=== PATIENT | female | born 1970 | race Caucasian/White ===

== ENCOUNTER → 2020-06-26 14:02 | Outpatient (BNVA) | payer OTHER, SELFPAY | PROVIDERS: PCP Nurse Practitioner Adult Health; Visit Provider Surgery | DX: K80.20 Calculus of gallbladder without cholecystitis without obstruction (principal) | CPT/HCPCS: 99203 ==

== ENCOUNTER 2020-07-03 06:08 | Day surgery (SDC) | payer OTHER, SELFPAY ==
--- NOTE | 2020-07-02 12:06 | HO.ANESPROP2 ---
Documented by User: Shanna Ware 07/02/20 12:12 HPI - Anesthesia Eval Consult details Narrative: 49yo F for uday thakur PMFSH Past Medical History Medical History Back pain Elevated cholesterol Fibromyalgia GERD (gastroesophageal reflux disease) HTN (hypertension) Normal endoscopy Sleep apnea Family History Family History Maternal Grandmother History of colon cancer History of breast cancer Father History of prostate cancer Brother History of testicular cancer Social History Social History (Updated 06/26/20 @ 14:20 by JORGE A Owens) Alcohol intake: current Alcohol intake frequency: holidays/special occasions only Smoking Status: Former smoker Smoked in Last 30 Days: No Use of substances other than those prescribed or required for medical reasons: No Have you been hit, kicked, punched, or otherwise hurt by someone within the past year? If so, by whom?: No Advance Directives: No Advance Directives Information Provided: Yes Advance Directives on File: No Recently lost weight without trying: No Meds Allergies Allergy/AdvReac Type Severity Reaction Status Date / Time azithromycin Allergy Mild HIVES Verified 07/03/20 06:16 Home Medications Medication Instructions Recorded Confirmed Type duloxetine 60 mg capsule,delayed 60 mg PO BID 06/26/20 History release estradiol g VAGINAL 06/26/20 History hydrochlorothiazide 25 mg tablet 25 mg PO DAILY 06/26/20 History levothyroxine 88 mcg tablet 88 mcg PO DAILY 06/26/20 History lorazepam 1 mg tablet 1 mg PO TID 06/26/20 History metoprolol succinate 100 mg 100 mg PO DAILY 06/26/20 History tablet,extended release 24 hr oxybutynin chloride 10 mg 10 mg PO DAILY 06/26/20 History tablet,extended release 24 hr Prilosec OTC 10 mg PO DAILY PRN 07/02/20 07/02/20 History Exam Exam Date and Time: July 02, 2020 1206 Assessment and Plan Assessment Anesthesia Assessment: Chart Reviewed Documented by User: Stephanie Dacosta 07/03/20 07:23 PMFSH Past Medical History Medical History Back pain Elevated cholesterol Fibromyalgia GERD (gastroesophageal reflux disease) HTN (hypertension) Normal endoscopy Sleep apnea Family History Family History Maternal Grandmother History of colon cancer History of breast cancer Father History of prostate cancer Brother History of testicular cancer Social History Social History (Updated 06/26/20 @ 14:20 by JORGE A Owens) Alcohol intake: current Alcohol intake frequency: holidays/special occasions only Smoking Status: Former smoker Smoked in Last 30 Days: No Use of substances other than those prescribed or required for medical reasons: No Have you been hit, kicked, punched, or otherwise hurt by someone within the past year? If so, by whom?: No Advance Directives: No Advance Directives Information Provided: Yes Advance Directives on File: No Recently lost weight without trying: No Meds Allergies Allergy/AdvReac Type Severity Reaction Status Date / Time azithromycin Allergy Mild HIVES Verified 07/03/20 06:16 Home Medications Medication Instructions Recorded Confirmed Type duloxetine 60 mg capsule,delayed 60 mg PO BID 06/26/20 History release estradiol g VAGINAL 06/26/20 History hydrochlorothiazide 25 mg tablet 25 mg PO DAILY 06/26/20 History levothyroxine 88 mcg tablet 88 mcg PO DAILY 06/26/20 History lorazepam 1 mg tablet 1 mg PO TID 06/26/20 History metoprolol succinate 100 mg 100 mg PO DAILY 06/26/20 History tablet,extended release 24 hr oxybutynin chloride 10 mg 10 mg PO DAILY 06/26/20 History tablet,extended release 24 hr Prilosec OTC 10 mg PO DAILY PRN 07/02/20 07/02/20 History Exam Airway Mallampati Class: III TM Dist: >3cm Neck ROM: Full Denture: Upper Heart: RRR Lungs: CTA BL
[2020-07-02 14:35] VITALS: BMI 41.3
[2020-07-03] VITALS (12 sets, daily range): BP systolic 127–165; BP diastolic 82–109; PULSE 79–104; RESP 16–22; TEMP 35.6–36.3; O2SAT 22–100
[2020-07-03] MEDS: Acetaminophen 325 MG TABLET 650 MG PO (06:40)
[2020-07-03] MEDS: Lactated Ringers 1,000 ML 100 ML IVCONT ×2 (06:49→09:36)
--- NOTE | 2020-07-03 07:17 | MHC.SHP ---
Pre-Procedural Eval Section A The patient is an INPATIENT: No Changes since office visit: No Cold of Flu in the past 2 weeks, No New Medical Problems, No Changes in Medication and No Patient answered all questions The History & Physical has been completed within 30 days and I have reviewed it.: Yes Section B Chief Complaint: Symptomatic Cholelithiasis Allergies: Allergies Allergy/AdvReac Type Severity Reaction Status Date / Time azithromycin Allergy Mild HIVES Verified 07/03/20 06:16 Plan Diagnosis/Plan: Unchanged Patient has been examined and remains a candidate for the planned procedure
[2020-07-03] MEDS: ondansetron HCL 4 MG/2 ML VIAL IVPUSH (08:58)
[2020-07-03] MEDS: oxyCODONE HCl Immed Release 5 MG TABLET 10 MG PO (09:02)
[2020-07-03] MEDS: fentaNYL citrate/PF 100 MCG/2 ML VIAL 25 MCG IVPUSH ×2 (09:11→09:17)
--- NOTE | 2020-07-03 10:34 | HO.POSTANES ---
Post Anesthesia Evaluation Post Anesthesia Evaluation Vital Signs: Vital Signs Temp Pulse Resp BP Pulse Ox 07/03/20 10:09 97.1 F 79 18 136/88 100 07/03/20 09:53 84 17 127/86 99 07/03/20 09:38 87 20 138/82 100 07/03/20 09:22 96 21 H 133/88 97 07/03/20 09:17 100 22 H 144/84 H 100 07/03/20 09:12 99 20 144/83 H 22 L 07/03/20 09:11 20 07/03/20 09:00 95 18 139/85 97 07/03/20 08:55 99 19 159/83 H 99 07/03/20 08:50 104 H 18 151/92 H 07/03/20 08:46 97.3 F 102 H 16 144/97 H 07/03/20 06:29 96.0 F L 84 16 165/109 H 94 Anesthesia: General Endotracheal-GETA Mental Status: Awake Pain Control: Satisfactory Nausea/Vomiting: None Hydration: Adequate Anesthesia-Related Issues: No Anes. Related Issues
--- NOTE | 2020-07-14 15:10 | P.OP_ITS ---
Operative Note Operative Note Narrative: Date of procedure: 07/03/20 Pre-op diagnosis: Symptomatic cholecystitis Post-op diagnosis: same Procedure: Laparoscopic cholecystectomy Procedure details: Patient was brought to the OR placed in a supine position. After administering general anesthesia the patient's abdomen was prepped with ChloraPrep and draped in sterile fashion. A surgical time-out was called and consent confirmed. Patient received preoperative antibiotics and Venodyne boots were in place. Local anesthesia consisting of 0.75% Sensorcaine was then infiltrated in a periumbilical region. A transverse 5 mm incision was made above the umbilicus. A Veress needle was then inserted while elevating abdominal cavity with towel clips. After a positive drop test the abdomen was insufflated to a pressure of 15 mm of mercury. The Veress needle was removed and a 5 mm trocar inserted. The camera was then inserted and the abdomen explored. A 12 mm trocar was placed in the epigastrium and two 5 mm trocars placed in the right upper quadrant. Patient was then placed in a reverse Trendelenburg position and rotated to the left. The gallbladder was grasped with the fundus and retracted cephalad. Infundibulum was then retracted away from the liver bed. Peritoneum was taken down off the liver bed to revealed the junction with the cystic duct. Cystic artery was noted just medial to this. After obtaining a critical view the cystic duct and cystic artery doubly clipped with hemoclips and divided. The gallbladder was then dissected off the liver bed using electrocautery. Hemostasis was assured all times using electrocautery. The gallbladder was then placed in Endo-Catch bag and brought out through the epigastric incision. The liver bed was then irrigated with saline solution and suctioned dry. Because of the patient's fatty liver small amount of oozing was noted at the liver bed therefore a small piece of Surgicel was applied to liver bed to assure adequate hemostasis. CO2 was then evacuated from the abdominal cavity and the trocars removed. Skin was closed in all incisions using a subcuticular 4-0 Polysorb suture. Sterile dressings were then applied. The patient tolerated the procedure well. Sponge instrument needle counts reported as correct. Patient was transferred to PACU in stable condition. Operative findings: Gallstone within the gallbladder at the neck, mildly inflamed gallbladder wall, markedly fatty liver. Implants: none Surgeon: Davion Barrett MD Anesthesia: GETA [employer] Team Member: Mindy Drake Estimated blood loss (mL): 5 Pathology: other (gallbladder) Condition: stable Disposition: PACU
== END 2020-07-03 10:41 | disposition home or self-care (01) ==
PROVIDERS: PCP Nurse Practitioner Adult Health; Visit Provider Surgery
PROC: 0FT44ZZ Resection of Gallbladder, Percutaneous Endoscopic Approach (ICD-10-PCS; CPT 47562; principal; 2020-07-03 07:30)
DX: K80.10 Calculus of gallbladder with chronic cholecystitis without obstruction (principal); K76.0 Fatty (change of) liver, not elsewhere classified; K21.9 Gastro-esophageal reflux disease without esophagitis; I10 Essential (primary) hypertension; E78.00 Pure hypercholesterolemia, unspecified; G47.30 Sleep apnea, unspecified; Z79.899 Other long term (current) drug therapy; Z87.891 Personal history of nicotine dependence; Z88.1 Allergy status to other antibiotic agents
CPT/HCPCS: 47562; 88304; J1100; J1885; J2250; J2405; J3010

== ENCOUNTER → 2020-07-16 10:56 | Outpatient (BNVA) | payer OTHER, SELFPAY | PROVIDERS: PCP Nurse Practitioner Adult Health; Visit Provider Surgery | DX: Z76.89 Persons encountering health services in other specified circumstances (principal) ==

== ENCOUNTER 2020-10-24 08:19 | Day surgery (SDC) | payer OTHER, SELFPAY ==
[2020-10-20 09:19] VITALS: BMI 41.3
--- NOTE | 2020-10-23 08:21 | P.CONAN_ITS ---
Documented by User: Shanna Ware 10/23/20 08:22 HPI - Anesthesia Eval Consult details Narrative: 50yo F for Colonoscopy s/p lap oef with GA 06/2020 [facility] Past Medical History Medical History (Updated 10/24/20 @ 08:58 by Lexii Mcfarlane) Back pain Elevated cholesterol Fibromyalgia GERD (gastroesophageal reflux disease) HTN (hypertension) Increased BMI Normal endoscopy Sleep apnea Thyroid disease Family History Family History Maternal Grandmother History of colon cancer History of breast cancer Father History of prostate cancer Brother History of testicular cancer Surgical History Surgical History History of esophagogastroduodenoscopy (EGD) S/P laparoscopic cholecystectomy (07/03/20) Social History Social History Alcohol intake: current Alcohol intake frequency: holidays/special occasions only Smoking Status: Former smoker Tobacco Type: Cigarette Use of substances other than those prescribed or required for medical reasons: No Have you been hit, kicked, punched, or otherwise hurt by someone within the past year? If so, by whom?: No Advance Directives: Yes Advance Directives on File: Yes Advance Directives Date on File: 10/24/20 Meds Allergies Allergy/AdvReac Type Severity Reaction Status Date / Time azithromycin Allergy Mild HIVES Verified 07/03/20 06:16 Home Medications Medication Instructions Recorded Confirmed Type duloxetine 60 mg capsule,delayed 60 mg PO BID 06/26/20 10/20/20 History release estradiol g VAGINAL 06/26/20 07/16/20 History hydrochlorothiazide 25 mg tablet 25 mg PO DAILY 06/26/20 10/20/20 History levothyroxine 88 mcg tablet 88 mcg PO DAILY 06/26/20 10/20/20 History lorazepam 1 mg tablet 1 mg PO TID PRN 06/26/20 10/20/20 History metoprolol succinate 100 mg 100 mg PO DAILY 06/26/20 10/20/20 History tablet,extended release 24 hr oxybutynin chloride 10 mg 10 mg PO DAILY 06/26/20 10/20/20 History tablet,extended release 24 hr Prilosec OTC 20 mg PO DAILY PRN 07/02/20 10/20/20 History Exam Exam Date and Time: October 23, 2020820 Height,Weight and Vital Signs: Height 5 ft 3 in Weight 105.687 kg Assessment and Plan Assessment Anesthesia Assessment: Chart Reviewed Documented by User: Lexii Mcfarlane 10/24/20 08:59 PMFSH Past Medical History Medical History (Updated 10/24/20 @ 08:58 by Lexii Mcfarlane) Back pain Elevated cholesterol Fibromyalgia GERD (gastroesophageal reflux disease) HTN (hypertension) Increased BMI Normal endoscopy Sleep apnea Thyroid disease Family History Family History Maternal Grandmother History of colon cancer History of breast cancer Father History of prostate cancer Brother History of testicular cancer Family history of problems with anesthesia: No Surgical History Surgical History History of esophagogastroduodenoscopy (EGD) S/P laparoscopic cholecystectomy (07/03/20) History of Problems with Anesthesia: No Social History Social History Alcohol intake: current Alcohol intake frequency: holidays/special occasions only Smoking Status: Former smoker Tobacco Type: Cigarette Use of substances other than those prescribed or required for medical reasons: No Have you been hit, kicked, punched, or otherwise hurt by someone within the past year? If so, by whom?: No Advance Directives: Yes Advance Directives on File: Yes Advance Directives Date on File: 10/24/20 Meds Allergies Allergy/AdvReac Type Severity Reaction Status Date / Time azithromycin Allergy Mild HIVES Verified 07/03/20 06:16 Home Medications Medication Instructions Recorded Confirmed Type duloxetine 60 mg capsule,delayed 60 mg PO BID 06/26/20 10/20/20 History release estradiol g VAGINAL 06/26/20 07/16/20 History hydrochlorothiazide 25 mg tablet 25 mg PO DAILY 06/26/20 10/20/20 History levothyroxine 88 mcg tablet 88 mcg PO DAILY 06/26/20 10/20/20 History lorazepam 1 mg tablet 1 mg PO TID PRN 06/26/20 10/20/20 History metoprolol succinate 100 mg 100 mg PO DAILY 06/26/20 10/20/20 History tablet,extended release 24 hr oxybutynin chloride 10 mg 10 mg PO DAILY 06/26/20 10/20/20 History tablet,extended release 24 hr Prilosec OTC 20 mg PO DAILY PRN 07/02/20 10/20/20 History Exam Height,Weight and Vital Signs: Vital Signs Temp Pulse Resp BP Pulse Ox 10/24/20 08:40 96.4 F L 82 18 176/97 H 94 Airway Mallampati Class: II TM Dist: >3cm Neck ROM: Full Denture: Upper Heart: RRR Lungs: CTAB Assessment and Plan Assessment Anesthesia Assessment: Anesthesia Plan Discussed and Chart Reviewed Final Anesthetic Review NPO: Yes ASA Class: III Final Preanesthetic Review: No Changes in Pt Med Stat, Meds/Allgs Chart Reviewed, Consent Obtained/Reviewed and Anes Risks/Benef Reviewed Patient Risk: Intermediate Procedure Risk: Low Assessment/Block/Sedation in SS: Assess/Block/Sedation-SS Anesthetic Plan Anesthetic Plan: MAC: Disposition: Standard PACU
[2020-10-24] VITALS (10 sets, daily range): BP systolic 94–176; BP diastolic 55–97; PULSE 82–94; RESP 13–20; TEMP 35.8–36.7; O2SAT 90–96
[2020-10-24] MEDS: Sodium Phosphate,Mono-Dibasic 133 ML ENEMA PR (08:58)
--- NOTE | 2020-10-24 09:12 | PC.NURSE ---
PATIENT GIVEN A FLEETS ENEMA X'S ONE WITH CLEAR TO YELLOWISH OUTPUT.
--- NOTE | 2020-10-24 10:16 | PM.OP ---
Brief Operative Note Date of Service: 10/24/20 Pre-op diagnosis: Screening Post-op diagnosis: other (Colon polyp, Diverticulosis, Internal hemorrhoids) Procedure: Colonoscopy to cecum with snare polypectomy Surgeon: Reg Smith Anesthesia: MAC Estimated blood loss (mL): 2.0 Pathology: other (A. Polyp at 20cm) Condition: stable Disposition: PACU
--- NOTE | 2020-10-24 18:35 | OP_ITS ---
SURGEON: Reg Smith MD INDICATIONS: The patient presents for evaluation of colorectal cancer screening. Full consent was obtained from her for this, including risks of bleeding and perforation. PREOPERATIVE DIAGNOSIS: Colorectal cancer screening. POSTOPERATIVE DIAGNOSIS: Colorectal cancer screening, colon polyp, diverticulosis, and internal hemorrhoids. PROCEDURE PERFORMED: Colonoscopy to the cecum with snare polypectomy. ESTIMATED BLOOD LOSS: COMPLICATIONS: ANESTHESIA: Monitored anesthesia care. ASSISTANTS: SPECIMENS: DESCRIPTION OF PROCEDURE: The patient was placed in the left lateral decubitus position. The digital rectal exam revealed no abnormalities. The Olympus video pediatric colonoscope was entered into the rectum and advanced to the cecum with the assistance of abdominal pressure. Once in the cecum, I did identify normal-appearing cecal pouch with appendiceal orifice and a normal-appearing ileocecal valve. The entire cecum and ileocecal valve appeared normal. There was transillumination of light deep in the right lower quadrant. The scope was slowly withdrawn assessing all mucosal surfaces carefully. Preparation was excellent. At 20 cm was an approximately 12 mm polyp on a stalk, which was snared and recovered by withdrawing it on the tip of the scope. The scope was readvanced into the rectum and to the polypectomy site. The polypectomy site appeared clean, without any sign of residual polyp nor bleeding. I did not visualize any other polyps, colitis, nor angiodysplasia. There was a moderate amount of sigmoid diverticulosis. In the rectum, scope was retroflexed visualizing internal hemorrhoids, but no other pathology. The rectal mucosa appeared normal. The scope was straightened and withdrawn from the patient. She tolerated the procedure well and was returned to the recovery area in stable condition. IMPRESSION: 1. Colon polyp, status post snare polypectomy. 2. Sigmoid diverticulosis. 3. Internal hemorrhoids. PLAN: The results of the pathology will be checked. Assuming this to be a tubular adenoma, I would recommend a followup colonoscopy in 5 years. She was advised not to use any aspirin or NSAIDs for 1 week. MD LEISA Bynum/LUCINAL / [id number]
== END 2020-10-24 13:08 | disposition home or self-care (01) ==
PROVIDERS: PCP Nurse Practitioner Adult Health; Visit Provider Internal Medicine
PROC: 0DJD8ZZ Inspection of Lower Intestinal Tract, Via Natural or Artificial Opening Endoscopic (ICD-10-PCS; CPT 45378; principal; 2020-10-24 09:40)
DX: Z12.11 Encounter for screening for malignant neoplasm of colon (principal); D12.5 Benign neoplasm of sigmoid colon; K57.30 Diverticulosis of large intestine without perforation or abscess without bleeding; K64.8 Other hemorrhoids; K21.9 Gastro-esophageal reflux disease without esophagitis; I10 Essential (primary) hypertension; G47.30 Sleep apnea, unspecified; Z79.899 Other long term (current) drug therapy; Z90.49 Acquired absence of other specified parts of digestive tract; Z87.891 Personal history of nicotine dependence
CPT/HCPCS: 45385; 88305

== ENCOUNTER 2022-10-04 08:57 | Emergency (ER) | payer OTHER, SELFPAY ==
--- NOTE | ~2022-10-04 | XR_ITS ---
EXAMINATION: XR CHEST CLINICAL INFORMATION: Chest pain COMPARISON: 09/11/2012 TECHNIQUE: Frontal view of the chest was obtained. FINDINGS: Lungs are well expanded and clear. No evidence of pulmonary edema, pleural effusion or pneumothorax. Cardiomediastinal silhouette has normal size and contour. The visualized bones and upper abdomen are unremarkable. XR/XR chest 1V IMPRESSION: No acute pulmonary disease.
--- NOTE | 2022-10-04 09:04 | ECG_ITS ---
Test Reason : dizziness Blood Pressure : / mmHG Vent. Rate : 088 BPM Atrial Rate : 088 BPM P-R Int : 134 ms QRS Dur : 082 ms QT Int : 388 ms P-R-T Axes : 022 089 042 degrees QTc Int : 469 ms Normal sinus rhythm Nonspecific ST abnormality Abnormal ECG When compared with ECG of 29-MAY-2016 08:50, Left posterior fascicular block is no longer Present Nonspecific T wave abnormality, improved in Inferior leads Nonspecific T wave abnormality, improved in Anterolateral leads Referred By: Generic ED Physician Electronically Signed By:Ant Koch
[2022-10-04 09:05] VITALS: BP 196/118; PULSE 100; RESP 19; TEMP 36.6; O2SAT 100; BMI 34.3
[2022-10-04 10:05] LABS: MANUAL DIFF FLAG NO
[2022-10-04 10:07] LABS: Basophils Percent Auto 0.1 % (0-2); Eosinophils Percent Auto 0.1 % (0-4); Hematocrit 46.3 % (37.0-47.0); Hemoglobin 15.7 g/dl (12.0-16.0); Imm Gran Abs Auto 0.04 X10*3/uL (0.00-0.03); Imm Gran Pct Auto 0.4 % (0.0-0.4); Lymphocytes Absolute Auto 1.3 X10*3/uL (1.2-4.9); Lymphocytes Percent Auto 14.2 % (20-40); Mean Corpuscular HGB Conc 33.9 g/dl (31.0-35.0); Mean Corpuscular Hemoglobin 28.4 pg (27.0-33.0); Mean Corpuscular Volume 83.9 fL (80.0-98.0); Mean Platelet Volume 9.2 fL (9.4-12.3); Monocytes Absolute Auto 0.4 X10*3/uL (0.1-1.2); Monocytes Percent Auto 4.6 % (2-11); Neutrophils Absolute Auto 7.6 x10*3/uL (2.0-8.3); Neutrophils Percent Auto 80.6 % (45-73); Platelet Count 255 X10*3/uL (160-400); Red Blood Count 5.52 X10*6/uL (4.20-5.50); Red Cell Distribution Width 13.2 % (11.0-16.0); White Blood Count 9.4 X10*3/uL (4.8-10.8)
[2022-10-04] MEDS: 0.9 % Sodium Chloride 1,000 ML 999 ML IV (10:07)
[2022-10-04] MEDS: ondansetron HCL 4 MG/2 ML VIAL IVPUSH (10:07)
[2022-10-04] MEDS: LORazepam 2 MG/ML VIAL IVPUSH (10:07)
[2022-10-04 10:15] LABS: INTERNATIONAL NORM RATIO 0.9 (0.9-1.1); Prothrombin Time 10.8 SEC (10.0-13.1)
--- NOTE | 2022-10-04 10:15 | PC.NURSE ---
51 y/o F pw dizziness and withdrawal sx that started last night. pt states that she was recently prescribed oxycodone for backpain and could not fill her perscription and now is having withdrawal sx. IV in place, labs drawn and sent, fluids infusing, given IV ativan and zofran with good effect.
[2022-10-04 10:18] LABS: Partial Thromboplastin Time 34.2 SEC (26.0-36.4)
--- NOTE | 2022-10-04 10:31 | ED_ITS ---
HPI - General Adult General Chief complaint: Dizziness Stated complaint: Dizziness Time Seen by Provider: 10/04/22 09:45 Source: patient Mode of arrival: ambulatory Limitations: no limitations History of Present Illness HPI narrative: 51-year-old female history hypothroidism, and opoid dependnce presents to the ED for nausea, vomitting, diarrhea, and lightheadeness since yesterday. Patient states her Pain management Provider Cancel her contract and stopped giving her oxycodone months ago. So patient states the last three months he has been taking blue pills from her friend as per substitute and has not had them for the past 3 days. Patient states her friend told her the blue pills were street opoids.. patient states not being able to take the blue pills patient started develoing symptoms. Patient believes she is withdrawing Related Data Home Medications Medication Instructions Recorded Confirmed duloxetine 60 mg capsule,delayed 60 mg PO BID 06/26/20 10/20/20 release estradiol 0.01% (0.1 mg/gram) g vaginal 06/26/20 07/16/20 vaginal cream hydrochlorothiazide 25 mg tablet 25 mg PO DAILY 06/26/20 10/20/20 levothyroxine 88 mcg tablet 88 mcg PO DAILY 06/26/20 10/20/20 lorazepam 1 mg tablet 1 mg PO TID PRN Anxiety 06/26/20 10/20/20 metoprolol succinate 100 mg 100 mg PO DAILY 06/26/20 10/24/20 tablet,extended release 24 hr oxybutynin chloride 10 mg 10 mg PO DAILY 06/26/20 10/20/20 tablet,extended release 24 hr Prilosec OTC 20 mg PO DAILY PRN Indigestion 07/02/20 10/20/20 Previous Rx's Medication Instructions Recorded oxycodone 5 mg tablet 5 mg PO Q6H PRN Abdominal Pain #14 07/03/20 tabs cephalexin 500 mg capsule 500 mg PO QID 7 days #28 caps 10/04/22 Allergies Allergy/AdvReac Type Severity Reaction Status Date / Time azithromycin Allergy Mild HIVES Verified 07/03/20 06:16 Review of Systems Review of Systems: nausea, vomiting, diarrhea, lightheadeness Yes all other systems are reviewed and are negative PMFSH Past Medical History Medical History (Updated 10/04/22 @ 14:47 by SOFYA Black) Back pain Elevated cholesterol Fibromyalgia GERD (gastroesophageal reflux disease) HTN (hypertension) Increased BMI Normal endoscopy Sleep apnea Thyroid disease Surgical History History of esophagogastroduodenoscopy (EGD) S/P laparoscopic cholecystectomy (07/03/20) Family History Family History Maternal Grandmother History of colon cancer History of breast cancer Father History of prostate cancer Brother History of testicular cancer Social History Social History Alcohol intake: current Alcohol intake frequency: holidays/special occasions only Advance Directives: No Advance Directives Information Provided: No Advance Directives Date on File: 10/24/20 Physical Exam ED Vital Signs: Vital Signs - 24 hr 10/04/22 09:05 10/04/22 13:13 10/04/22 14:59 Temperature 98 F 98.3 F 98.3 F Pulse Rate 100 87 69 Respiratory Rate 19 19 18 Blood Pressure 196/118 H 133/65 145/69 H Pulse Oximetry 100 98 98 Oxygen Delivery Method Room Air Room Air Room Air BMI result Body Mass Index 34.3 Const General: cooperative, healthy appearing, comfortable, no acute distress, well developed, alert, awake and Physically active Orientation/consciousness: oriented to person, oriented to place, oriented to time and patient oriented x3 HENMT Head: Yes normal to inspection, Yes No palpable skull fracture present, Yes normocephalic, Yes atraumatic and No abrasion Eyes General: appearance normal, both eyes and all related structures Neck Neck: Yes normal visual inspection, Yes full ROM, Yes no lymphadenopathy, Yes no meningeal signs, Yes trachea midline, Yes supple, No anterior neck swelling and No tender Chest Chest palpation & inspection: normal inspection of the chest and normal palpation of entire chest wall Resp Effort & Inspection: normal respiratory effort and able to speak in complete se ntences Cardio Jugular venous distension: no JVD Heart sounds: S1 normal heart sound present and S2 normal heart sound present GI Inspection: Yes normal to inspection and No abdominal wall ecchymosis Palpation (GI): Soft to palpation, not firm, nontender, no guarding and not rigid General: No CVA tenderness and Yes no CVA tenderness Back/Spine/Pelvis Back: no CVA tenderness, No CVA tenderness and No back tenderness Skin General skin exam: no rashes or lesions noted and elasticity normal Neuro Other: Negative slurred speech. negative facial droop. All extremities equal strength 5+. [id number] rapid hand movement intact. Negative Romberg. Negative pronator drift General: oriented to person, oriented to place, oriented to time, patient oriented x3, gait normal, tone normal, moves all extremities, Normal light touch and pain sensation, no meningeal signs, no focal motor deficits and CN's II-XI intact bilaterally Extrem General: Yes normal to inspection and Yes full ROM Psych Appearance: grossly normal, well kempt and not disheveled Course Course Course Narrative: Patient patient sounds like withdrawal. Labs medical evaluation stress EKG was ordered before patient was seen as rapid medical screening. Due to patient's blood pressure was still do labs to make sure there is no kidney injury and ch dory cardiac enzymes. Will give Ativan and Zofran Reevaluation(s) Reevaluation #1: PATIENT FEELS BETTER AFTER RECEIVING ATIVAN AND BLOOD PRESSURE RESOLVED. FIRST TROPONIN NEGATIVE. EKG NEGATIVE STEMI. SARS COVID NEGATIVE. CHEST X-RAY NEGATIVE PNEUMONIA. PATIENT ON RE-EVALUATION DENIES EVER HAVING ANY CHEST PAIN OR SHORTNESS OF BREATH MAIN COMPLAINT WITH LIGHTHEADEDNESS, NAUSEA, VOMITING, AND DIARRHEA DUE TO WITHDRAWAL SYMPTOMS. PATIENT HAD MEDICAL WORKUP INCLUDING CHEST X-RAY TROPONIN BECAUSE TO INITIAL TRIAGE SAYS CHEST PAIN. PATIENT INTERESTED IN FOLLOW-UP WITH [facility] FOR [facility]. NO NEED FOR HEAD CT SCAN. PATIENT IS NEGATIVE ANY NEURO DEFICITS. NIH SCORE 0. Blood pressure improved after ativan and zofran WAITING FOR SECOND TROPONIN. Patient symptoms resolved after meds. UA shows possible UTI but maybe more dirthy catch. Time: 13:29 Reevaluation #2: 2nd troponin negative. Patient was informed due to her opiate dependence I believe his best she has follow-up with [facility] for opoid dependence and instead of being given on all her narcotics without any management from primary care provider and pain management. Patient also informed to call back her pain management clinic to see another provider. Patient to be discharged withdrawals diagnosed Time: 14:20 Reevaluation #3: Medications Administered Discontinued Medications Generic Name Dose Route Start Last Admin Trade Name Freq PRN Reason Stop Dose Admin Sodium Chloride 1,000 mls @ 999 mls/hr 10/04/22 09:56 10/04/22 11:05 Ns IV 10/04/22 10:56 Infused .Q1H1M STA Infusion Lorazepam 2 mg 10/04/22 09:56 10/04/22 10:07 Lorazepam 2 Mg/Ml Vial IVPUSH 10/04/22 09:57 2 mg ONCE ONE Administration Ondansetron HCl 4 mg 10/04/22 09:56 10/04/22 10:07 Ondansetron Hcl 4 Mg/2 Ml Vial IVPUSH 10/04/22 09:57 4 mg ONCE ONE Administration Medical Decision Making Medical Decision Making MDM Narrative: 51-year-old female with history of opioid dependence/oxycodone for pain relief for many years, hypretension, and hypothryroid presents to the ED lighheadedness, nausea, vomitting, and diarrhea since stop taking oxycodone/opoids from the street 3 days ago ( her friend would by them in the streets). Patient denies any neuro deficit Differential Diagnosis Differential Diagnoses: The differential diagnosis associated with the presentation includes (TN, opoid withdrawal, hypertension.) Admission/Observation Presently no indication for observation unless patient worsens or have a medical admission Consult Healthcare Provider no need for furhter consult. Patient referred to Suboxone Clinic. patient given paperwork for subaxone clinic and also informed to call her pain management clinic and PCP. Lab Data 10/04/22 09:53 10/04/22 09:53 Labs: Lab Results 10/04/22 10/04/22 10/04/22 Range/Units 09:53 09:53 09:53 WBC (4.8-10.8) X10*3/uL RBC (4.20-5.50) X10*6/uL Hgb (12.0-16.0) g/dl Hct (37.0-47.0) % MCV (80.0-98.0) fL MCH (27.0-33.0) pg MCHC (31.0-35.0) g/dl RDW (11.0-16.0) % Plt Count (160-400) X10*3/uL MPV (9.4-12.3) fL Immature Gran % (Auto) (0.0-0.4) % Neut % (Auto) (45-73) % Lymph % (Auto) (20-40) % [place] % (Auto) (2-11) % Eos % (Auto) (0-4) % Baso % (Auto) (0-2) % Lymph # (Auto) (1.2-4.9) X10*3/uL [place] # (Auto) (0.1-1.2) X10*3/uL Eos # (Auto) (0.0-0.4) X10*3/uL Baso # (Auto) (0.0-0.2) X10*3/uL Abs Immat Gran (auto) (0.00-0.03) X10*3/uL Absolute Neuts (auto) (2.0-8.3) x10*3/uL Absolute Nucleated RBC (0.0-0.012) X10*3/uL Nucleated RBC % (auto) (0.0-0.2) /100WBC PT 10.8 (10.0-13.1) SEC INR 0.9 (0.9-1.1) APTT 34.2 (26.0-36.4) SEC Sodium (135-145) mmol/L Potassium (3.3-5.1) mmol/L Chloride (96-108) mmol/L Carbon Dioxide (22-29) mmol/L Anion Gap (12-20) BUN (9-16) mg/dL Creatinine (0.5-1.4) mg/dL Estim Creat Clear Calc Estimated GFR Random Glucose (60-115) mg/dL Calcium (8.4-10.2) mg/dL Total Bilirubin (0.0-1.0) mg/dL AST (5-31) U/L ALT (0-31) U/L Alkaline Phosphatase (39-117) U/L Troponin I High Sens < 3.5 (<3.5-17.0) ng/L B-Natriuretic Peptide 162 H (<100) pg/mL Total Protein (6.5-8.0) g/dL Albumin (3.5-5.0) g/dL Urine Color Urine Appearance Urine pH (5.0-9.0) Ur Specific [place] (1.005-1.025) Urine Protein (Neg-Trace) mg/dL Urine Glucose (UA) (Negative) mg/dL Urine Ketones (Negative) mg/dL Urine Blood (Negative) Urine Nitrite (Negative) Ur Leukocyte Esterase (Negative) Urine RBC (0-2) /HPF Urine WBC (0-5) /HPF Ur Squamous Epith Cells (0-2) /HPF Urine Bacteria (None Seen) Hyaline Casts (0-2) /LPF Urine Opiates Screen (Not Detect) Urine Fentanyl Screen (Not Detect) Ur Barbiturates Screen (Not Detect) Ur Phencyclidine Scrn (Not Detect) Ur Amphetamines Screen (Not Detect) U Benzodiazepines Scrn (Not Detect) Urine Cocaine Screen (Not Detect) U Marijuana (THC) Screen (Not Detect) Influenza Type A (PCR) (Negative) Influenza Type B (PCR) (Negative) RSV RNA Qual (PCR) (Negative) SARS-CoV-2 RNA (RT-PCR) (Negative) 10/04/22 10/04/22 10/04/22 Range/Units 09:53 09:53 10:36 WBC 9.4 (4.8-10.8) X10*3/uL RBC 5.52 H (4.20-5.50) X10*6/uL Hgb 15.7 (12.0-16.0) g/dl Hct 46.3 (37.0-47.0) % MCV 83.9 (80.0-98.0) fL MCH 28.4 (27.0-33.0) pg MCHC 33.9 (31.0-35.0) g/dl RDW 13.2 (11.0-16.0) % Plt Count 255 (160-400) X10*3/uL MPV 9.2 L (9.4-12.3) fL Immature Gran % (Auto) 0.4 (0.0-0.4) % Neut % (Auto) 80.6 H (45-73) % Lymph % (Auto) 14.2 L (20-40) % [place] % (Auto) 4.6 (2-11) % Eos % (Auto) 0.1 (0-4) % Baso % (Auto) 0.1 (0-2) % Lymph # (Auto) 1.3 (1.2-4.9) X10*3/uL [place] # (Auto) 0.4 (0.1-1.2) X10*3/uL Eos # (Auto) 0.0 (0.0-0.4) X10*3/uL Baso # (Auto) 0.0 (0.0-0.2) X10*3/uL Abs Immat Gran (auto) 0.04 H (0.00-0.03) X10*3/uL Absolute Neuts (auto) 7.6 (2.0-8.3) x10*3/uL Absolute Nucleated RBC 0.000 (0.0-0.012) X10*3/uL Nucleated RBC % (auto) 0.0 (0.0-0.2) /100WBC PT (10.0-13.1) SEC INR (0.9-1.1) APTT (26.0-36.4) SEC Sodium 135 (135-145) mmol/L Potassium 3.4 (3.3-5.1) mmol/L Chloride 100 (96-108) mmol/L Carbon Dioxide 25 (22-29) mmol/L Anion Gap 13 (12-20) BUN 11 (9-16) mg/dL Creatinine 0.71 (0.5-1.4) mg/dL Estim Creat Clear Calc 100.0 Estimated GFR > 60 Random Glucose 160 H (60-115) mg/dL Calcium 9.5 (8.4-10.2) mg/dL Total Bilirubin 1.6 H (0.0-1.0) mg/dL AST 18 (5-31) U/L ALT 16 (0-31) U/L Alkaline Phosphatase 92 (39-117) U/L Troponin I High Sens (<3.5-17.0) ng/L B-Natriuretic Peptide (<100) pg/mL Total Protein 8.0 (6.5-8.0) g/dL Albumin 4.3 (3.5-5.0) g/dL Urine Color Urine Appearance Urine pH (5.0-9.0) Ur Specific Kane (1.005-1.025) Urine Protein (Neg-Trace) mg/dL Urine Glucose (UA) (Negative) mg/dL Urine Ketones (Negative) mg/dL Urine Blood (Negative) Urine Nitrite (Negative) Ur Leukocyte Esterase (Negative) Urine RBC (0-2) /HPF Urine WBC (0-5) /HPF Ur Squamous Epith Cells (0-2) /HPF Urine Bacteria (None Seen) Hyaline Casts (0-2) /LPF Urine Opiates Screen (Not Detect) Urine Fentanyl Screen (Not Detect) Ur Barbiturates Screen (Not Detect) Ur Phencyclidine Scrn (Not Detect) Ur Amphetamines Screen (Not Detect) U Benzodiazepines Scrn (Not Detect) Urine Cocaine Screen (Not Detect) U Marijuana (THC) Screen (Not Detect) Influenza Type A (PCR) NEGATIVE (Negative) Influenza Type B (PCR) NEGATIVE (Negative) RSV RNA Qual (PCR) NEGATIVE (Negative) SARS-CoV-2 RNA (RT-PCR) NEGATIVE (Negative) 10/04/22 10/04/22 10/04/22 Range/Units 13:20 14:13 14:13 WBC (4.8-10.8) X10*3/uL RBC (4.20-5.50) X10*6/uL Hgb (12.0-16.0) g/dl Hct (37.0-47.0) % MCV (80.0-98.0) fL MCH (27.0-33.0) pg MCHC (31.0-35.0) g/dl RDW (11.0-16.0) % Plt Count (160-400) X10*3/uL MPV (9.4-12.3) fL Immature Gran % (Auto) (0.0-0.4) % Neut % (Auto) (45-73) % Lymph % (Auto) (20-40) % [place] % (Auto) (2-11) % Eos % (Auto) (0-4) % Baso % (Auto) (0-2) % Lymph # (Auto) (1.2-4.9) X10*3/uL [place] # (Auto) (0.1-1.2) X10*3/uL Eos # (Auto) (0.0-0.4) X10*3/uL Baso # (Auto) (0.0-0.2) X10*3/uL Abs Immat Gran (auto) (0.00-0.03) X10*3/uL Absolute Neuts (auto) (2.0-8.3) x10*3/uL Absolute Nucleated RBC (0.0-0.012) X10*3/uL Nucleated RBC % (auto) (0.0-0.2) /100WBC PT (10.0-13.1) SEC INR (0.9-1.1) APTT (26.0-36.4) SEC Sodium (135-145) mmol/L Potassium (3.3-5.1) mmol/L Chloride (96-108) mmol/L Carbon Dioxide (22-29) mmol/L Anion Gap (12-20) BUN (9-16) mg/dL Creatinine (0.5-1.4) mg/dL Estim Creat Clear Calc Estimated GFR Random Glucose (60-115) mg/dL Calcium (8.4-10.2) mg/dL Total Bilirubin (0.0-1.0) mg/dL AST (5-31) U/L ALT (0-31) U/L Alkaline Phosphatase (39-117) U/L Troponin I High Sens < 3.5 (<3.5-17.0) ng/L B-Natriuretic Peptide (<100) pg/mL Total Protein (6.5-8.0) g/dL Albumin (3.5-5.0) g/dL Urine Color Yellow Urine Appearance Cloudy Urine pH 7.0 (5.0-9.0) Ur Specific [place] 1.020 (1.005-1.025) Urine Protein 30 (1+) H (Neg-Trace) mg/dL Urine Glucose (UA) Negative (Negative) mg/dL Urine Ketones 15 (Negative) mg/dL Urine Blood Negative (Negative) Urine Nitrite Negative (Negative) Ur Leukocyte Esterase Trace H (Negative) Urine RBC 3-5 H (0-2) /HPF Urine WBC 0-5 (0-5) /HPF Ur Squamous Epith Cells 11-20 (0-2) /HPF Urine Bacteria 2+ (None Seen) Hyaline Casts 0-2 (0-2) /LPF Urine Opiates Screen Not Detected (Not Detect) Urine Fentanyl Screen POSITIVE H (Not Detect) Ur Barbiturates Screen Not Detected (Not Detect) Ur Phencyclidine Scrn Not Detected (Not Detect) Ur Amphetamines Screen Not Detected (Not Detect) U Benzodiazepines Scrn Not Detected (Not Detect) Urine Cocaine Screen Not Detected (Not Detect) U Marijuana (THC) Screen POSITIVE H (Not Detect) Influenza Type A (PCR) (Negative) Influenza Type B (PCR) (Negative) RSV RNA Qual (PCR) (Negative) SARS-CoV-2 RNA (RT-PCR) (Negative) Independent Interpretation I performed an independent interpretation of an: EKG Interpretation: Normal sinus rhythm. Ventricular rate 88. Pr interval 134. QRS 82. QTC 469. Negative Stemi Radiology Impression Discussion of test interpretation with radiology: I have reviewed the radiologist's reading. (xray of chest normal) Tests considered The following testing was considered but not selected: NO need for head CT scan. no neuro deficits and blood pressure improved. Discharge Plan Discharge Clinical Impression: Withdrawal from opioids Patient Disposition: Home, Self-Care Instructions: Urinary Tract Infection in Women (ED), Opioid Withdrawal (ED) Additional Instructions: Your blood work and EKG came back negative for signs of heart attack. Kidney function is normal. Negative for urinary . UA may show UTI Your blood count is normal. Please follow-up with the primary care provider and pain management clinic provider. He can follow up also without [facility] at [address] [place] [address] [address]. [place], [place] [phone]. Return to the ED for any chest pain, shortness, weakness, nausea, vomiting, headache, slurred speech, facial droop, paralysis of extremities, neck swelling, calf pain, coughing up blood, loss of vision, or any other concerning symptoms. Prescriptions: New cephalexin 500 mg capsule 500 mg PO QID 7 Days Qty: 28 0RF No Action Prilosec OTC 20 mg PO DAILY PRN (Reason: Indigestion) oxycodone 5 mg tablet 5 mg PO Q6H PRN (Reason: Abdominal Pain) Qty: 14 0RF duloxetine 60 mg capsule,delayed release(DR/EC) 60 mg PO BID lorazepam 1 mg tablet 1 mg PO TID PRN (Reason: Anxiety) oxybutynin chloride 10 mg tablet extended release 24hr 10 mg PO DAILY levothyroxine 88 mcg tablet 88 mcg PO DAILY metoprolol succinate 100 mg tablet extended release 24 hr 100 mg PO DAILY hydrochlorothiazide 25 mg tablet 25 mg PO DAILY estradiol 0.01 % (0.1 mg/gram) cream vaginal Stand Alone Forms: Work/School Release Interventions: ED Discharge Assessment Last Done: 10/04/22 14:59 Discharge Date/Time: 10/04/22 15:03 Print Language: [place]
[2022-10-04 10:38] LABS: Troponin-I High Sensitivity < 3.5 ng/L (<3.5-17.0)
[2022-10-04 10:39] LABS: B Type Natriuretic Peptide 162 pg/mL (<100)
[2022-10-04 10:49] LABS: Influenza A PCR NEGATIVE (Negative); Influenza B PCR NEGATIVE (Negative); Resp Syncy Virus RNA Qual PCR NEGATIVE (Negative); SARS COV2 PCR INHOUSE NEGATIVE (Negative)
[2022-10-04 11:03] LABS: Alanine Aminotransferase 16 U/L (0-31); Albumin Level 4.3 g/dL (3.5-5.0); Alkaline Phosphatase 92 U/L (39-117); Anion Gap 13 (12-20); Aspartate Amino Transferase 18 U/L (5-31); Bilirubin Total 1.6 mg/dL (0.0-1.0); Blood Urea Nitrogen 11 mg/dL (9-16); Calcium 9.5 mg/dL (8.4-10.2); Carbon Dioxide 25 mmol/L (22-29); Chloride 100 mmol/L (96-108); Estimated Glomerular Filt Rate > 60; Glucose Random 160 mg/dL (60-115); Potassium 3.4 mmol/L (3.3-5.1); Sodium 135 mmol/L (135-145)
[2022-10-04 13:13] VITALS: BP 133/65; PULSE 87; RESP 19; TEMP 36.8; O2SAT 98
[2022-10-04 13:50] LABS: Troponin-I High Sensitivity < 3.5 ng/L (<3.5-17.0)
--- NOTE | 2022-10-04 14:24 | MHC.EDTECH ---
patient went to the bathroom, then wanted to go outside to see a visitor. we told her she could not do that. She was saying she was being treated differently once we found out why she was here, I reassured her that was not true
[2022-10-04 14:28] LABS: Appearance Urine Cloudy; Color Urine Yellow; Glucose Urine UA Negative (Negative); Leukocyte Esterase Urine Trace (Negative); Nitrite Urine Negative (Negative); UMIC TRIGGER UACC YES; Urine Blood Negative (Negative); Urine Ketones 15 mg/dL (Negative); Urine Protein 30 (1+) mg/dL (Neg-Trace)
[2022-10-04 14:30] LABS: Bacteria Urine 2+ (None Seen); Hyaline Casts Urine 0-2 /LPF (0-2); WBC Urine 0-5 /HPF (0-5)
[2022-10-04 14:33] LABS: Amphetamine Screen Urine Not Detected (Not Detect); Barbiturates, Urine Not Detected (Not Detect); Benzodiazepines Screen Urine Not Detected (Not Detect); Cannabinoid Screen Urine POSITIVE (Not Detect); Cocaine Screen Urine Not Detected (Not Detect); Fentanyl, urine POSITIVE (Not Detect); Opiate Screen Urine Not Detected (Not Detect); Phencyclidine Screen Urine Not Detected (Not Detect)
[2022-10-04 14:59] VITALS: BP 145/69; PULSE 69; RESP 18; TEMP 36.8; O2SAT 98
== END 2022-10-04 15:03 | disposition home or self-care (01) ==
PROVIDERS: Physician Assistant; Emergency Provider Student in an Organized Health Care Education/Training Program
DX: F11.23 Opioid dependence with withdrawal (principal); R42 Dizziness and giddiness; Z20.822 Contact with and (suspected) exposure to COVID-19; Z20.828 Contact with and (suspected) exposure to other viral communicable diseases
CPT/HCPCS: 0241U; 36415; 71045; 80053; 80307; 81001; 83880; 84484; 85025; 85610; 85730; 93005; 96361; 96374; 96375; 99284; 99285; J2060; J2405

== ENCOUNTER 2024-11-26 14:38 | Outpatient (AMB) | payer OTHER, SELFPAY ==
--- NOTE | 2024-11-26 14:50 | MHC.OFFVIS ---
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: No Accompanied by: Self / Same As Patient Allergies azithromycin Allergy (Mild, Verified 11/26/24 14:57) HIVES Medication List - Last Reconciled 11/26/24 by ANNA Londono bupropion HCl XL 150 mg PO QAM cyclobenzaprine 10 mg PO TID duloxetine 60 mg PO BID levothyroxine 88 mcg PO DAILY metoprolol succinate ER 100 mg PO DAILY oxybutynin chloride ER 10 mg PO DAILY [Prilosec OTC 20 mg PO DAILY PRN] HPI HPI Chronic pain/fibromyalgia: Details: Patient is a 54 years old female with history of chronic upper and low back pain, chronic pain syndrome, fibromyalgia, major depression and anxiety, CINTIA, and morbid obesity, presents today for initial evaluation for chronic pain and fibromyalgia. Denies any past or recent trauma, injury or falls. She reports strong family history of osteoarthritis in her mother and maternal grandmother and personal history of positive TC. Patient has been prescribed numerous medications for chronic pain, including oxycodone and more recently Suboxone. Per PCP referral, patient has history of violating CSC contrast and also history of overdosing on street drugs. Patient is very upset to hear about this in our office and reports she once took a prescribed medication from her friend who underwent surgery. She reports she is very afraid to get any streed drugs. She reports taking herself off Suboxone recently as this has not been helpful. I have informed patient that I do not offer opioid prescribing. She is interested in muscle relaxant and non-opioid therapy for fibromyalgia and interventional treatments for low back pain with intermittent sciatica pain. She also requests referral to Rheumatology. Patient reports she underwent physical therapy and received knee injections through [facility] many years ago. 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 Reports axial low back pain with positive sacroiliac joint pain and hip pain. She also reports widespread body pain of upper and lower extremities with associated fatigue, chronic headaches, body muscle aching and spasming. Pain affects her daily activities and functioning, mobility, mood, sleep, social interactions and quality of life. Denies any fever or chills, abdominal or groin pain, weakness, foot drop, bowel dysfunction or saddle anesthesia. Reports history of stress urinary incontinence. Patient presents with elevated BP, asymptomatic, reports she took her BP medications. She attributes elevated BP due to stress and is very upset regarding PCP report about previous CSC violation. Location: Lower back pain, widespread body pain, multiple joints pain Duration: Chronic pain >25+ years Characteristics of symptom or complaint: Aching, stabbing, sharp, tugging, pulling, dull, sore, hurting, tiring Aggravating or associated factors: Lifting, climbing stairs, walking, movements, cold weather, stress Relieving factors: Oxycodone, Suboxone, rest, diclofenac cream, heat/ice therapy Treatment: PT, knee injections, massages, TENS unit [facility] Medical History (Updated 11/26/24 @ 15:44 by ANNA Londono) Urinary frequency Stress incontinence CINTIA (obstructive sleep apnea) Marijuana use Major depression Low back pain Left hand pain Bilateral knee pain Hypothyroid IBS (irritable bowel syndrome) Glucose intolerance Gastroesophageal reflux disease with hiatal hernia Fungal rash of torso Facial rash Chronic upper back pain Chronic pain syndrome Arm skin lesion, right Anxiety TC positive Increased BMI Thyroid disease Normal endoscopy Back pain Fibromyalgia GERD (gastroesophageal reflux disease) Elevated cholesterol HTN (hypertension) Sleep apnea Surgical History History of esophagogastroduodenoscopy (EGD) S/P laparoscopic cholecystectomy (07/03/20) Family History Maternal Grandmother History of colon cancer History of breast cancer Father History of prostate cancer Brother History of testicular cancer Social History (Updated 11/26/24 @ 14:59 by Renetta Jordan) Alcohol intake: current Alcohol intake frequency: holidays/special occasions only Comment: Sore throat. Pt has pre-existing fibromyalgia body aches. Patient Tobacco Use Status: Former Tobacco user Substance Use Type: Marijuana Advance Directives Date on File: 10/24/20 Review of Systems Const All systems reviewed & are unremarkable except as noted in HPI and below Physical Exam Vital Signs: Last Vital Signs Pulse 103 H 11/26/24 14:58 BP 251/133 H 11/26/24 14:58 Pulse Ox 97 11/26/24 14:58 Oxygen Delivery Method Room Air 11/26/24 14:58 BMI result Body Mass Index 41.6 General: Appears afebrile. Alert and oriented. Mood and affect appropriate. Very anxious and upset. Follows and participates in conversation appropriately. Respiratory effort is unlabored. No cough. Able to transition from sit to stand unassisted. Ambulates with bilaterally normal heel strike and toe off. General: Yes no CVA tenderness Back/Spine/Pelvis Other: Limited lumbar ROM due to pain and body habitus. Lumbar extension reproduces moderate pain. Flexion is intact and reproduces mild pain. Multiple widespread TTPs 16/16 bilaterally, including upper and lower extremities.??Demonstrates 5/5 strength of quadriceps bilaterally as well as flexion/dorsiflexion of bilateral feet against resistance. 2+ pedal pulses bilaterally. Straight leg rise with dorsiflexion negative bilaterally. +2 patellar and achilles reflexes bilaterally. Facet loading test positive bilaterally. Judith sign, Bladimir?s, Pelvic compression and Stinchfield tests are positive bilaterally, right>left. No groin pain with I/E hip rotations. Valsalva maneuver negative. No clonus. Back: no CVA tenderness Cervical Spine: cervical ROM normal, cervical muscular tenderness, pain with cervical ROM and No Cervical spine tenderness Thoracic/Lumbar Spine: thoracic and lumbar spine normal to inspection, No Thoracic/lumbar spine scar(s), Lasegue's sign negative, straight leg raise negative bilaterally, pain with thoraco-lumbar ROM, paraspinal muscle tenderness, thoraco-lumbar ROM limited, No thoracic spinal tenderness and lumbar spinal tenderness (L3-S1) Pelvis: buttock tenderness bilaterally Sacroiliac joints: bilaterally tender to palpation Extrem General: Yes capillary refill normal, Yes no clubbing, cyanosis or edema and Yes no calf tenderness Results Reviewed Results Reviewed: No imaging reports are available for review today. Assessment & Plan Assessment & Plan (1) Fibromyalgia: Code(s): M79.7 - Fibromyalgia Category: Medical (2) Chronic pain syndrome: Code(s): G89.4 - Chronic pain syndrome Category: Medical (3) Lumbar spondylosis: Code(s): M47.816 - Spondylosis without myelopathy or radiculopathy, lumbar region Category: Medical (4) Bilateral hip pain: Code(s): M25.551 - Pain in right hip; M25.552 - Pain in left hip Category: Medical (5) Polyarthralgia: Code(s): M25.50 - Pain in unspecified joint Category: Medical (6) Muscle spasm: Code(s): M62.838 - Other muscle spasm Category: Medical Plan Discussed management of fibromyalgia and chronic pain in her back and hips with patient. Educated patient that fibromyalgia is a noninflammatory, non-autoimmune and central afferent processing disorder leading to a diffuse and widespread musculoskeletal pain syndrome. Discussed importance of CBT for sleep and pain which patient can discuss with psychotherapist. She reports being long time on waiting list to see Mental health provider. Patient would benefit from increased physical activity, either through formal physical therapy or by joining a gym. She is interested in PT trial and will try to increase walking and home light exercises such progressive walking, simple strength training exercises, and stretching activities. Discussed importance of weight loss, adequate hydration, sleep hygiene, good posture and stress management. Script provided for PT therapy. Referral to Rheumatology per patient's request to further evaluate polyarthralgia with strong family history for OA and personal history of positive TC. Discussed interventional treatments for axial low back pain, hip and SIJ joint. Will obtain xrays for assess for degenerative changes and degree of arthritis. Scripts provided for gabapentin, tizanidine and lidocaine patches. Side effects and precautions were discussed with patient. Patient will monitor her BP and follow up with PCP if BP remains elevated. All questions and concerns have been answered and patient agreed with the plan. Follow up for xray results/medication review and sooner as needed. Orders: Orders XR lumbar spine 4V min 11/26/24 G89.4 - Chronic pain syndrome, M47.816 - Spondylosis without myelopathy or radiculopathy, lumbar region XR hip BI w PEL1V 11/26/24 M25.551 - Pain in right hip, M25.552 - Pain in left hip PT Evaluation and Treatment 11/26/24 M25.551 - Pain in right hip, M25.552 - Pain in left hip, M47.816 - Spondylosis without myelopathy or radiculopathy, lumbar region, M62.838 - Other muscle spasm, M79.7 - Fibromyalgia Referrals Rheumatology Referral G89.4 - Chronic pain syndrome, M25.50 - Pain in unspecified joint, R76.8 - Other specified abnormal immunological findings in serum Medications: New tizanidine 4 mg PO Q8H PRN 90 caps 0RF muscle spasticity M62.838 - Other muscle spasm, M79.7 - Fibromyalgia gabapentin 300 mg PO TID 30 days 90 caps 0RF pain G89.4 - Chronic pain syndrome, M79.7 - Fibromyalgia lidocaine 5% leave on most painful area for up to 12 hrs topically daily; 30 days 30 ea 0RF pain M47.816 - Spondylosis without myelopathy or radiculopathy, lumbar region Discontinued oxycodone Discontinued Reason: Patient Completed Course 5 mg PO Q6H PRN 14 tabs 0RF Abdominal Pain cephalexin Discontinued Reason: Patient Completed Course 500 mg PO QID 7 days 28 caps 0RF Coding Level of Care Code New Pt Level 4 (39244) Complex EM visit Add On G2211 Diagnoses Fibromyalgia M79.7 Chronic pain syndrome G89.4 Lumbar spondylosis M47.816 Bilateral hip pain M25.551; M25.552 Polyarthralgia M25.50 Muscle spasm M62.838
[2024-11-26 14:58] VITALS: BP 251/133; PULSE 103; O2SAT 97; BMI 41.6
--- OUTSIDE RECORDS SUMMARY | 2024-11-26 17:26 | XMS_ITS | Continuity of Care Document ---
Author Organization [facility] Address [address] [place] [address]- Care Team Providers Care Transmission Engineer Name Role Phone Karley Greer Primary Care Physician [phone] Encounter [facility] [place] Date(s): 10/12/24 - 11/11/24 [facility] [address] [place] [address]- Encounter Type: Triage Allergies, Adverse Reactions, Alerts Substance Criticality Severity Reaction Reaction Severity Status Zithromax Z-Kayden Acti ve Immunizations Given and Recorded Vaccine Date Status Refusal Reason SARS-CoV-2 (COVID-19) mRNA BNT-162b2 vac 09/21/21 Given SARS-CoV-2 (COVID-19) Ad26 vaccine 01/02/21 Record ed tetanus/diphtheria/pertussis, acel(Tdap) 10/03/20 Given influenza virus vaccine, inactivated 07/17/14 Give n influenza virus vaccine, inactivated 06/29/13 Give n Tet/Diphth/Acel, Pertussis (oldterm) 11/06/10 Give n Influenza Virus Vaccine (oldterm) 1 08/04/10 Given tetanus-diphtheria toxoids (Td) 09/26/00 Given 1Admin Note: declines Medications amLODIPine 5 mg oral tablet 5 mg, 1, tablet, By Mouth, Daily, # 30 tablet, Refills 1, Tot. Refills 1, Maintenance, 11/29/23 3:47:00 PM EST, Route to Pharmacy Electronically, [facility] #[id number], Partial fill upon patient request if the prescription is for a schedule II opioid drug., 163, cm, 11/29/23 15:17:00 EST, Height Start Date: 11/29/23 Status: Ordered Quantity: 30.0 Unit: tablet Repeat number: 2 buPROPion 150 mg/24 hours (XL) oral tablet, extended release 1 tablet, By Mouth, Every 24 hours, # 30 tablet, 1 Refills, Maintenance, 10/29/24 5:53:00 PM EST, [facility] #[id number], 30, TAKE 1 TABLET BY MOUTH EVERY 24 HOURS, 163, cm, 11/29/23 15:17:00 EST,Height Start Date: 10/29/24 Status: Ordered Quantity: 30.0 Unit: tablet Repeat number: 1 cyclobenzaprine 10 mg oral tablet 1, tablet, By Mouth, 3 times a day, PRN, # 90 tablet, Refills 0, Maintenance, NEEDED FOR SPASM, 10/18/24 11:06:00 AM EST, Route to Pharmacy Electronically, [facility] #[id number], 163, cm, 11/29/23 15:17:00 EST, Height Start Date: 10/18/24 Status: Ordered Quantity: 90.0 Unit: tablet Repeat number: 1 duloxetine 60 mg oral enteric coated capsule 1 capsule, By Mouth, 2 times a day, # 180 capsule, 3 Refills, Maintenance, 03/14/24 10:40:00 AM EDT,[facility] #[id number], 163, cm, 11/29/23 15:17:00 EST, Height Start Date: 03/14/24 Status: Ordered Quantity: 180.0 Unit: capsule Repeat number: 4 ketoconazole 2% topical cream 1 application, Topically, 2 times a day, Apply to affected skin as needed, # 60 Gm, 0 Refills, Maintenance, 09/05/24 11:36:00 AM EST, Cream, [facility] #[id number], Partial fill upon patient request if the prescription is for a schedule II opioid drug., 1 application Topically 2 times a day,x14 days,Instr:Apply to affected skin as needed, 163, cm, 11/29/23 15:17:00 EST, Height Start Date: 09/05/24 Stop Date: 09/19/24 Status: Ordered Quantity: 60.0 Unit: g Repeat number: 1 levothyroxine 0.088 mg oral tablet 1 tablet, By Mouth, Daily, # 90 tablet, 0 Refills, Maintenance, 09/06/24 10:38:00 AM EST, [facility] #[id number], 163, cm, 11/29/23 15:17:00 EST, Height Start Date: 09/06/24 Status: Ordered Quantity: 90.0 Unit: tablet Repeat number: 1 Metoprolol Succinate ER 100 mg oral tablet, extended release 1 tablet, By Mouth, Daily, # 90 tablet, 1 Refills, Maintenance, 06/09/24 7:53:00 AM EDT, [facility] #[id number], 163, cm, 11/29/23 15:17:00 EST, Height Start Date: 06/09/24 Status: Ordered Quantity: 90.0 Unit: tablet Repeat number: 1 oxybutynin 15 mg/24 hr oral tablet, extended release 1 tablet = 15 mg, By Mouth, Daily, # 90 tablet, 3 Refills, Maintenance, 09/21/21 2:37:00 PM EST, ERTablet, [facility] #[id number], Partial fill upon patient request if the prescription is for aschedule II opioid drug., 163, cm, 09/21/21 14:20:00 EST, Height Start Date: 09/21/21 Stop Date: 09/16/22 Status: Ordered Quantity: 90.0 Unit: tablet Repeat number: 4 pantoprazole 40 mg oral delayed release tablet 1 tablet = 40 mg, By Mouth, Daily, # 30 tablet, 0 Refills, Maintenance, 09/07/22 5:40:00 PM EST, [facility], 163, cm, 09/21/21 14:20:00 EST, Height Start Date: 09/07/22 Status: Ordered Quantity: 30.0 Unit: tablet Repeat number: 1 Problem List Condition Confirmation Course Effective Dates Status H ealth Status Informant TC positive 1 Confirmed Active Anxiety Confirmed 2005 Active Chronic upper back pain Confirmed Active Chronic pain syndrome Confirmed Active Fungal rash of torso Confirmed Active Arm skin lesion, right Confirmed Active Facial rash Confirmed Active Family history of colon cancer Confirmed Active Fibromyalgia Confirmed Active Gastroesophageal reflux disease with hiatal hernia 2 Confirmed 2005 Active Stress incontinence Confirmed Active Left hand pain Confirmed Active Hypertension Confirmed 2005 Active Hypothyroid Confirmed 2005 Active Glucose intolerance (impaired glucose tolerance) Confirmed Active Urinary frequency Confirmed Active Irritable Bowel Syndrome Confirmed 2005 Active Knee pain, right Confirmed Active Knee pain, left Confirmed 06/29/13 Active Low back pain Confirmed Active Marijuana use Confirmed Active Obstructive sleep apnea Confirmed Active Severe obesity (BMI 35.0-39.9) with comorbidity Confirmed Active 1patient had TC September 2009 that was positive. Patient saw a plant engineering manager and was told had no connective tissue disorder at that point. 2EGD negative for Iyer's esophagus 2003 Social History Social History Type Response Smoking Status Former smoker; Other : Quit smoking age 33; entered on: 05/03/16 Sex Sex Representation Female (finding) Patient Care team information Care Team Personnel Name: Karley Greer Position: [facility] PCO Associate Professional Member Role: PCP Address: [address] [place] [address] Telecom: Care Team Related Persons Name: SUSIE GODINEZ Name: KARIS ZIMMERMAN Name: ROHAN ZIMMERMAN Insurance Providers Guarantor name: COTY ZIMMERMAN Health Plan Information #: 1 Payer: [facility] Member Number: NA Policy Number: NA Group Number: NA
--- OUTSIDE RECORDS SUMMARY | 2024-11-26 17:26 | XMS_ITS | Patient Health Record ---
Author Organization [facility] Address [address] [place] [address] Care Team Providers Care Planning Supervisor Name Role Phone Arron Franz MD Primary Care Provider Reg Fischer [phone] ALLERGIES Allergen (clinical drug ingredient) Drug/Non Drug Allergy documented on EMR Reaction Allergy Type Onset Date Status Azithromycin Unknown Drug Allergy Acti ve REASON FOR REFERRAL No Information MEDICATIONS Medication SIG (Take, Route, Frequency, Duration) Notes Start Date End Date Status oxyBUTYnin Chloride ER 10 MG TK 1 T PO D Oral for 30 Active Metoprolol Succinate ER 100 MG TK 1 T PO D PLEASE HAVE LABS FOR FURTHER REFILLS Oral for 90 Active hydroCHLOROthiazide 25 MG TK 1 T PO D Or al for 90 Active Excedrin Extra Strength when needed Active Levothyroxine Sodium 88 MCG 1 tablet Ora lly Once a day Active Prilosec 20 MG 1 capsule Orally prn Active LORazepam 1 MG 1 tablet as needed Orally Once a day Active Metoprolol Succinate 100 MG 1 capsule Or ally Once a day Active Cymbalta 20 MG 1 capsule Orally Twice a day for 30 day(s) Active DULoxetine HCl 60 MG TK 1 C PO BID Oral for 30 Active IMMUNIZATIONS Vaccine Route Administration Date Status Comme nts Influenza Unknown 02/14/2019 Refused SOCIAL HISTORY Sex Assigned At : Social History Observation Description Sex Assigned At Unknown Alcohol Screen Question Answer Notes Did you have a drink contain ing alcohol in the past year? Yes How often did you have a dri nk containing alcohol in the past year? 2 to 4 times a month (2 points) How many drinks did you have on a typical day when you were drinking in the past year? 3 or 4 drinks (1 point) How often did you have 6 or more drinks on one occasion in the past year? Never (0 point) Points 3 Interpretation Positive PROBLEMS Problem Type ICD Code Onset Dates Problem Status W/U Status Risk SNOMED Code Notes Problem Encounter for screening for malignant neoplasm of colon (Z12.11) Active confirmed 623805468 Problem Irritable bowel syndrome without diarrhea (K58.9) Active confirmed 78881759 Problem Preprocedural examination (Z01.818) Active confirmed [id number] Problem Gastroesophageal reflux disease, esophagitis presence not specified (K21.9) Active confirmed 330324972 Problem RUQ abdominal pain (R10.11) Active confirmed 678132183 PLAN OF TREATMENT Pending Test Test Name Order Date Pathology 10/24/2020 Future Test Test Name Order Date COLONOSCOPY 02/14/2019 COLONOSCOPY 06/10/2020 Insurance Providers Payer Name Payer Address Payer Phone Subscriber Number Group Number Insured Name Patient Relationship to Insured Coverage Start Date Coverage End Date [facility] [address] [place] [phone] [id number] COTY ZIMMERMAN Self - patient is the insured MEDICAL (GENERAL) HISTORY Medical History History ICD Code Hypertension Denies MA,DM,CVA,Lung disease,renal dise ase GERD--uses Prilosec prn--had an EGD with Dr. Jeffers in 2004 at [facility]--she thinks it was negative Depression Hypothyroidism Sleep apnea, but not using CPAP Fibromyalgia Surgical History Surgery Date(Month/Year)
--- OUTSIDE RECORDS SUMMARY | 2024-11-26 17:27 | XMS_ITS | Clinical Summary ---
Author Organization [facility] Address [address] [place] [address] Care Team Providers Care Fixture Relamper Name Role Phone Karley Hernandez Primary Care Provider [phone] Social History Tobacco Use Types Packs/Day Years Used Date Smoking Tobacco: Never Assessed Comments Unknown Sex and Gender Information Value Date Recorded Sex Assigned at Not on file Legal Sex Female 8:47 PM EST Gender Identity Not on file Sexual Orientation Not on file Plan of Treatment Health Maintenance Due Date Last Done Comments Breast Cancer Screening 1968 DTaP,Tdap,and Td Vaccines (1 - Tdap) 1987 Hepatitis B Vaccines (1 of 3 - 19+ 3-dose series) 1987 Cervical Cancer Screening: P ap Smear 1989 Pneumococcal Vaccine: 50+ Ye ars (1 of 1 - PCV) 2018 Zoster Vaccines (1 of 2) 2018 Cholesterol Screening (Lipid Panel) 10/21/2023 Colorectal Cancer Screening: Colonoscopy 10/21/2023 Depression Screening 10/21/2023 HIV Screening 10/21/2023 Hepatitis C Screening 10/21/2023 Social Influencers of Health Screening 10/21/2023 Hypertension/CHF/CAD Annual BMP Blood Test 04/20/2024 COVID-19 Vaccine (2023-2 5 season) 2024 Influenza Vaccine (#1) 2024 HIB Vaccines Aged Out No longer eligi ble based on patient's age to complete this topic HPV Vaccines Aged Out No longer eligi ble based on patient's age to complete this topic Hepatitis A Vaccines Aged Out No long er eligible based on patient's age to complete this topic IPV Vaccines Aged Out No longer eligi ble based on patient's age to complete this topic MMR Vaccines Aged Out No longer eligi ble based on patient's age to complete this topic Meningococcal ACWY Vaccine Aged Out N o longer eligible based on patient's age to complete this topic Meningococcal B Vacine Aged Out No lo nger eligible based on patient's age to complete this topic Pneumococcal Vaccine: Pediat rics (0 to 5 Years) and At-Risk Patients (6 to 64 Years) Aged Out No longer eligible b ased on patient's age to complete this topic RSV Immunization Patients Un sandra 20 months Aged Out No longer eligible b ased on patient's age to complete this topic Varicella Vaccines Aged Out No longer eligible based on patient's age to complete this topic Care Teams Fixture Relamper Relationship Specialty Start Date End Date Karley Hernandez PA [address] PCP - General 12/16/23
--- OUTSIDE RECORDS SUMMARY | 2024-11-26 17:27 | XMS_ITS | Continuity of Care Document ---
Author Organization [facility] Address [address] [place] [address]- Care Team Providers Care Film Sound Coordinator Name Role Phone Karley Greer Primary Care Physician [phone] [place] [facility] [place]): [place] 11/22/24 [facility] Adult [address] [place] [address]- Encounter Diagnosis Fibromyalgia(Discharge Diagnosis) - 11/15/24 Attending Physician: Not on Staff, Attending MD Encounter Type: Office Visit Allergies, Adverse Reactions, Alerts Substance Criticality Severity [...] 3:47:00 PM EST, Route to Pharmacy Electronically, [facility] #[id number], Partial fill upon patient request if the prescription is for a schedule II opioid drug., 163, cm, 11/29/23 15:17:00 EST, Height Start Date: 11/29/23 Status: Ordered Quantity: 30.0 Unit: tablet Repeat number: 2 buPROPion 150 mg/24 hours (XL) oral tablet, extended release 1 tablet, By Mouth, Every 24 hours, # 30 tablet, 1 Refills, Maintenance, 10/29/24 5:53:00 PM EST, [facility] #[id number], 30, TAKE 1 TABLET BY MOUTH EVERY 24 HOURS, 163, cm, 11/29/23 15:17:00 EST,Height Start Date: 10/29/24 Status: Ordered Quantity: 30.0 Unit: tablet Repeat number: 1 cyclobenzaprine 10 mg oral tablet 1, tablet, By Mouth, 3 times a day, PRN, # 90 tablet, Refills 0, Maintenance, NEEDED FOR SPASM, 11/15/24 8:56:00 PM EST, Route to Pharmacy Electronically, [facility] #[id number], 163, cm, 11/15/24 10:17:00 EST, Height Start Date: 11/15/24 Status: Ordered Quantity: 90.0 Unit: tablet Repeat number: 1 duloxetine 60 mg oral enteric coated capsule 1 capsule, By Mouth, 2 times a day, # 180 capsule, 3 Refills, Maintenance, 03/14/24 10:40:00 AM EDT,[facility] #[id number], 163, cm, 11/29/23 15:17:00 EST, Height Start Date: 03/14/24 Status: Ordered Quantity: 180.0 Unit: capsule Repeat number: 4 ketoconazole 2% topical cream 1 application, Topically, 2 times a day, Apply to affected skin as needed, # 60 Gm, 0 Refills, Maintenance, 09/05/24 11:36:00 AM EST, Cream, [facility] #[id number], Partial fill upon patient request if the [...] 0 Refills, Maintenance, 09/06/24 10:38:00 AM EST, [facility] #[id number], 163, cm, 11/29/23 15:17:00 EST, Height Start Date: 09/06/24 Status: Ordered Quantity: 90.0 Unit: tablet Repeat number: 1 Metoprolol Succinate ER 100 mg oral tablet, extended release 1 tablet, By Mouth, Daily, # 90 tablet, 1 Refills, Maintenance, 06/09/24 7:53:00 AM EDT, [facility] #[id number], 163, cm, 11/29/23 15:17:00 EST, Height Start Date: 06/09/24 Status: Ordered Quantity: 90.0 Unit: tablet Repeat number: 1 oxybutynin 15 mg/24 hr oral tablet, extended release 1 tablet = 15 mg, By Mouth, Daily, # 90 tablet, 3 Refills, Maintenance, 09/21/21 2:37:00 PM EST, ERTablet, [facility] #[id number], Partial fill upon patient request if the [...] pain Confirmed Active Marijuana use Confirmed Active Obese class I Confirmed Active Obstructive sleep apnea Confirmed Active 1patient had TC September 2009 that was positive. Patient saw a vocational nursing instructor and was told had no connective tissue disorder at that point. 2EGD negative for Iyer's esophagus 2003 Diagnosis Diagnosis Type Effective Dates Health Status Cl inical Service Informant Fibromyalgia Discharge Diagnosis 11/15/24 Vital Signs Most recent to oldest [Reference Range]: 1 Height 163.00 cm (11/15/24 10:17 AM) Weight 90.71 kg (11/15/24 10:17 AM) Body Mass Index [18.5-24.99 kg/m2] 34.14 kg/m2 *>HHI* (11/15/24 10:17 AM) Weight Obtained Via Patient/family state d (11/15/24 10:17 AM) Social History Social History Type Response Smoking Status Former smoker; Other : Quit smoking age 33; entered on: 05/03/16 Sex Sex Representation Female (finding) Patient Care team information Care Team Personnel Name: Karley Greer Position: [facility] PCO Associate Professional Member Role: PCP Address: [address] [place] [address] Telecom: Care Team Related Persons Name: SUSIE GODINEZ Name: KARIS ZIMMERMAN Name: ROHAN ZIMMERMAN Insurance Providers Guarantor name: COTY ZIMMERMAN Health Plan Information #: 1 Payer: [employer] Member Number: [id number] Policy Number: NA Group Number: NA Health Plan Information #: 2 Payer: [employer] Member Number: [id number] Policy Number: NA Group Number: NA
== END 2024-11-26 15:43 | disposition home or self-care (01) ==
PROVIDERS: PCP Internal Medicine; Visit Provider Nurse Practitioner Family
DX: M79.7 Fibromyalgia (principal); G89.4 Chronic pain syndrome; M47.816 Spondylosis without myelopathy or radiculopathy, lumbar region; M25.551 Pain in right hip; M25.552 Pain in left hip; M25.50 Pain in unspecified joint; M62.838 Other muscle spasm
CPT/HCPCS: 99204; G2211

== ENCOUNTER → 2024-11-26 14:38 | Outpatient (BNVA) | payer OTHER, SELFPAY | PROVIDERS: PCP Internal Medicine; Visit Provider Nurse Practitioner Family | DX: M25.551 Pain in right hip (principal); M25.552 Pain in left hip; G89.4 Chronic pain syndrome; M47.816 Spondylosis without myelopathy or radiculopathy, lumbar region; M79.7 Fibromyalgia; M25.50 Pain in unspecified joint; M62.838 Other muscle spasm | CPT/HCPCS: 99202 ==